=== PATIENT | male | born 1960 | race African-American/Black ===

== ENCOUNTER 2025-06-04 00:57 | Day surgery (SDC) | payer OTHER, SELFPAY ==
[2025-05-14 09:50] VITALS: BMI 34.4
[2025-06-04 09:16] VITALS: BP 153/90; PULSE 63; RESP 14; TEMP 36.4; O2SAT 100; BMI 34.8
--- NOTE | 2025-06-04 09:31 | P.PNAN_ITS ---
Anes - Initial Pre Proc Eval Procedure: Operation Date: 06/04/25 10:30 Proposed Procedures p Screening Colonoscopy - Jadiel Juarez DO Date/Time: 06/04/25 09:31 Surgeon: Jadiel Juarez DO Pre Op Diagnosis: Neoplasm screening Patient Data Age: 65 Gender: M Height: 1.78 m Weight: 110.1 kg Last Vital Signs Temp 36.4 C 06/04/25 09:16 Pulse 63 06/04/25 09:16 Resp 14 06/04/25 09:16 BP 153/90 H 06/04/25 09:16 Pulse Ox 100 06/04/25 09:16 O2 Del Method Room Air 06/04/25 09:16 Allergies Allergy/AdvReac Type Severity Reaction Status Date / Time No Known Allergies Allergy Mild Verified 06/04/25 09:21 Home Medications ?Medication ?Instructions ?Recorded ?Confirmed ?Type losartan 100 mg tablet 100 mg PO DAILY #90 tabs 01/1806/04/25 Rx levothyroxine 50 mcg tablet See Rx Instructions .Route 05/03/25 06/04/25 Rx .COMPLEX #90 tabs zolpidem 10 mg tablet 10 mg PO QHS PRN sleep #30 t abs 05/24/25 06/04/25 Rx peg-electrolyte solution 420 gram 240 ml PO Q15-20M #4 ,000 mL 06/03/25 Rx oral solution Patient hx anesthesia problems: none Family hx anesthesia problems: none Results Review: All pre-operative results and documents have been reviewed as part of the pre- operative evaluation. [facility] Past Medical History Medical History BMI 37.0-37.9, adult URI, acute Screening for prostate cancer Other acne Encounter for long-term (current) drug use Colon cancer screening CKD (chronic kidney disease), stage II Insomnia Adult hypothyroidism Glucose intolerance (impaired glucose tolerance) Benign essential hypertension Rotator cuff disorder Family History Family History Mother Hypertension Family history of malignant neoplasm of breast in first degree relative Sibling Family history of diabetes mellitus in first degree relative Father Malignant neoplasm of prostate Social History Social History Smoking status: Never smoker Second hand tobacco smoke exposure: No Alcohol intake: current Drinks per week: 5 Substance use: never Substance use type: does not use Lack of Transportation: No Lack of Food: Never True Current Housing: I Have Housing Concerned About Future Housing: No Difficulty Paying Gas/Electric Bills: No Difficulty Paying for Meds: No Currently Unemployed: No Education: High School Diploma/GED Difficulty w/ Childcare or Family Care: No Living arrangements: alone Occupation/Education: retired 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 Informed Consent: The patient's anesthetic plan and its attendant risks and benefits were discussed with the patient/family/POA. Questions were solicited and answers provided to the satisfaction of the patient/family/POA.
[2025-06-04] MEDS: LACTATED RINGERS 1,000 ML 150 ML IV CONT (09:33)
--- NOTE | 2025-06-04 09:57 | P.HP_ITS ---
H&P: HPI History of Present Illness Date/Time: 06/04/25 09:57 Chief Complaint: screening for colorectal cancer Narrative: this is a 65-year-old man who presents for colonoscopy. His last colonoscopy was 10 years ago was normal. He denies any hematochezia or melena. Review of Systems Review of Systems: All systems reviewed & are unremarkable except as noted in HPI and below Constitutional: Constitutional: Denies chills, Denies fever(s), Denies headache(s) and Denies weight loss Eyes: Eyes: Denies change in vision ENT: Denies dizziness, Denies headache(s), Denies neck mass and Denies throat swelling Cardiovascular: Cardiovascular: Denies chest pain, Denies lightheadedness and Denies dyspnea Respiratory: Respiratory: Denies cough, Denies dyspnea and Denies wheezing Gastrointestinal: Gastrointestinal: Denies abdominal pain, Denies change in bowel habits, Denies nausea and Denies vomiting Genitourinary: Genitourinary: Denies hematuria and Denies dysuria Musculoskeletal: Musculoskeletal: Reports as per HPI Integumentary/Breasts: Skin/Breast: Reports as per HPI Neurologic: Denies dizziness and Denies headache(s) Allergic/Immunologic: Allergic/Immunologic: Denies throat swelling and Denies wheezing PMFSH Past Medical History Medical History BMI 37.0-37.9, adult URI, acute Screening for prostate cancer Other acne Encounter for long-term (current) drug use Colon cancer screening CKD (chronic kidney disease), stage II Insomnia Adult hypothyroidism Glucose intolerance (impaired glucose tolerance) Benign essential hypertension Rotator cuff disorder Family History Family History Mother Hypertension Family history of malignant neoplasm of breast in first degree relative Sibling Family history of diabetes mellitus in first degree relative Father Malignant neoplasm of prostate Social History Social History Smoking status: Never smoker Second hand tobacco smoke exposure: No Alcohol intake: current Drinks per week: 5 Substance use: never Substance use type: does not use Lack of Transportation: No Lack of Food: Never True Current Housing: I Have Housing Concerned About Future Housing: No Difficulty Paying Gas/Electric Bills: No Difficulty Paying for Meds: No Currently Unemployed: No Education: High School Diploma/GED Difficulty w/ Childcare or Family Care: No Living arrangements: alone Occupation/Education: retired 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 Gender identity (if verbalized by the patient): Male Meds Home Medications and Allergies Home Medications ?Medication ?Instructions ?Recorded ?Confirmed ?Type losartan 100 mg tablet 100 mg PO DAILY #90 tabs 01/1806/04/25 Rx levothyroxine 50 mcg tablet See Rx Instructions .Route 05/03/25 06/04/25 Rx .COMPLEX #90 tabs zolpidem 10 mg tablet 10 mg PO QHS PRN sleep #30 t abs 05/24/25 06/04/25 Rx peg-electrolyte solution 420 gram 240 ml PO Q15-20M #4 ,000 mL 06/03/25 Rx oral solution Allergies Allergy/AdvReac Type Severity Reaction Status Date / Time No Known Allergies Allergy Mild Verified 06/04/25 09:21 Vital Signs Vital Signs - 24 hr 06/04/25 09:16 Temperature 97.6 F Pulse Rate 63 Respiratory Rate 14 Blood Pressure 153/90 H Pulse Oximetry 100 Oxygen Delivery Room Air Exam Const: General: no acute distress and alert Orientation/consciousness: patient oriented x3 HENMT: Head: normocephalic and atraumatic Ears: hearing grossly normal bilaterally Face/Nose/Sinus: Normal nares present Mouth: Yes Normal oral and palatal mucosa present Eyes: Periorbital: periorbital findings normal Sclera: sclerae normal EOM: EOMs intact bilaterally Neck: Neck: normal visual inspection, no lymphadenopathy and trachea midline Chest: Chest palpation & inspection: normal inspection of the chest Resp: Effort & Inspection: normal respiratory effort Auscultation: clear to auscultation bilaterally Cardio: Jugular venous distension: no JVD Rate: regular rate Rhythm: regular rhythm Heart sounds: S1 normal heart sound present and S2 normal heart sound present Peripheral pulses: Peripheral pulses 2+ throughout GI: Inspection: normal to inspection GI Palp: Yes Soft to palpation, No Tenderness to palpation present (GI), No Guarding due to palpation present (GI) and No Rebound tenderness present Percussion: Yes normal to percussion Auscultation: normal bowel sounds : General: Yes no CVA tenderness Back/Spine/Pelvis: Back: no CVA tenderness Neuro: General: patient oriented x3, no focal motor deficits and CN's II-XI intact bilaterally Cognition (Neuro): normal cognition Speech: normal speech Motor exam (neuro): 5/5 motor strength present throughout Extrem: General: capillary refill normal and no clubbing, cyanosis or edema Assessment and Plan Assessment and plan (1) Colon cancer screening: Code(s): Z12.11 - Encounter for screening for malignant neoplasm of colon Status: Acute Assessment and Plan: I have recommended colonoscopy. I have discussed the procedure, risks, oliver efits, and alternatives. Questions were answered. Patient is agreeable to proceed.
[2025-06-04 10:18] VITALS: BP 116/76; PULSE 67; RESP 21; O2SAT 100
[2025-06-04 10:28] VITALS: BP 130/71; PULSE 66; RESP 23; O2SAT 100
[2025-06-04 10:38] VITALS: BP 131/83; PULSE 62; RESP 22; O2SAT 100
== END 2025-06-04 10:43 | disposition home or self-care (01) ==
PROVIDERS: PCP Nurse Practitioner; Visit Provider Surgery
PROC: 0DJD8ZZ Inspection of Lower Intestinal Tract, Via Natural or Artificial Opening Endoscopic (ICD-10-PCS; CPT 45378; principal; 2025-06-04 10:30)
DX: Z12.11 Encounter for screening for malignant neoplasm of colon (principal); K57.30 Diverticulosis of large intestine without perforation or abscess without bleeding; E03.9 Hypothyroidism, unspecified; I12.9 Hypertensive chronic kidney disease with stage 1 through stage 4 chronic kidney disease, or unspecified chronic kidney disease; N18.2 Chronic kidney disease, stage 2 (mild); G47.00 Insomnia, unspecified; R73.02 Impaired glucose tolerance (oral); E66.9 Obesity, unspecified; Z68.34 Body mass index [BMI] 34.0-34.9, adult; Z80.3 Family history of malignant neoplasm of breast; Z80.42 Family history of malignant neoplasm of prostate
CPT/HCPCS: 45378; J2704; J7120